=== PATIENT | female | born 1965 | race Caucasian/White ===

== ENCOUNTER 2019-04-09 01:07 | Emergency (ER) | payer OTHER, SELFPAY ==
[2019-04-09] VITALS (9 sets, daily range): BP systolic 132–161; BP diastolic 62–100; PULSE 86–109; RESP 16–25; TEMP 36.8; O2SAT 94–100
--- NOTE | ~2019-04-09 | XR_ITS ---
EXAMINATION: XR chest 2V DATE: 04/09/2019 02:10 INDICATION: Chest pain. Palpitations. TECHNIQUE: Frontal and lateral views of the chest were obtained. COMPARISON: None. FINDINGS: The chest demonstrates clear lungs without pneumonia, pleural effusion, or pneumothorax. Th e heart size is normal. Surgical clips in the right upper quadrant are likely from cholecystectomy. IMPRESSION: 1. No acute cardiopulmonary disease. Reviewed, dictated and finalized at location A. [facility] [employer] [facility]
--- NOTE | 2019-04-09 01:33 | ECG_ITS ---
Measurements Intervals [place] Rate: 109 P: 38 [place]: 145 QRS: 61 QRSD: 90 T: 57 QT: 330 QTc: 445 Interpretive Statements SINUS TACHYCARDIA LOW QRS VOLTAGE IN PRECORDIAL LEADS BASELINE WANDER- I, II, AVR, AVL, AVF, V1-V3 ABNORMAL ECG Electronically Signed On 04-09-2019 6:59:33 LINE INSPECTOR by Will Estrada D.O.
--- NOTE | 2019-04-09 01:37 | ED.ARRPALP ---
HPI - Arrhythmia/Palpitations General Chief Complaint: Arrhythmia/Palpitations Stated Complaint: pounding heart/indegestion Time Seen by Provider: 04/09/19 01:09 Source: patient, family (pt's ) and RN notes reviewed Mode of arrival: ambulatory Limitations: no limitations History of Present Illness HPI narrative: Pt is a 54 y/o female with a Hx of anxiety, who presents to the ED with c/o heart palpitations starting roughly 1.5 hours ago. Her notes that she recently stopped taking her Zoloft. Pt states that she went to sleep around 23:00 yesterday, and notes that she woke up approximately 1.5 hours ago with her heart pounding. Pt notes that her heart felt as though it was beating through her chest. She states that she felt nauseas and lightheaded after getting out of bed shortly after she awoke. Pt notes that after noticing her pulse was 128, she decided to be evaluated in the ED. She currently denies any CP, SOB, or diaphoresis. Pt states that she hasn't had any recent life stressors, and notes that she hasn't consumed any caffeine since yesterday morning. She states that she has a Hx of similar symptoms several years ago. complaint: rapid heart beat Onset (ago): hour(s) (1.5) Context: awoke with symptoms Associated symptoms: nausea and other (lightheadedness) Related Data Home Medications Medication Instructions Recorded Confirmed [place] 04/09/19 Allergies Allergy/AdvReac Type Severity Reaction Status Date / Time No Known Allergies Allergy Verified 04/09/19 01:20 Review of Systems Review of Systems: All systems reviewed & are unremarkable except as noted in HPI and below Cardiovascular: Cardiovascular: Denies chest pain, Denies diaphoresis and Reports palpitations Respiratory: Respiratory: Denies dyspnea Gastrointestinal: Gastrointestinal: Reports nausea Neurologic: Reports other (lightheadedness) [facility] Past Medical History Medical History (Updated 04/09/19 @ 05:55 by Lawson Hand MD) Anxiety HTN (hypertension) Surgical History Surgical History History of hysterectomy Hx of appendectomy Hx of cholecystectomy Hx of oophorectomy Family History Family History Sibling Acute myocardial infarction, Onset Age: 52 Social History Social History Smoking status: Never smoker Gender identity (if verbalized by the patient): Female Exam Narrative: Exam Narrative: GENERAL: Well-appearing, well-nourished, and in no acute distress. HEAD: Normocephalic, atraumatic. ENT: Mucous membranes moist. CHEST: Clear to auscultation. No respiratory distress. HEART: Regular rate and rhythm. Normal peripheral pulses. ABDOMEN: Soft, nontender, nondistended. EXTREMITIES: Normal range of motion. No edema. SKIN: Warm, dry, no rash. NEURO: No focal deficits. Alert and oriented x3. PSYCH: Mildly anxious. Course Course Emergency Course: Informed of results. Trop negative x 2. Recommend f/u with PCP. Vital Signs Vital signs: Vital Signs Temperature 98.2 F 04/09/19 01:14 Pulse Rate 109 H 04/09/19 01:14 Respiratory Rate 16 04/09/19 01:14 Blood Pressure 161/100 H 04/09/19 01:14 Pulse Oximetry 100 04/09/19 01:14 Temperature 98.2 F 04/09/19 01:14 Pulse Rate 98 04/09/19 05:32 Respiratory Rate 25 H 04/09/19 05:32 Blood Pressure 157/95 H 04/09/19 04:31 Pulse Oximetry 98 04/09/19 05:32 MDM - Arrhythmia/Palpitations Lab Data Result diagrams: 04/09/19 01:54 04/09/19 03:24 Labs: Lab Results 04/09/19 04/09/19 04/09/19 Range/Units 01:54 01:54 03:24 WBC 8.4 (4.5-10.0) K/mm3 RBC 4.54 (4.2-5.4) M/mm3 Hgb 13.7 (12.0-15.0) g/dL Hct 40.4 (37.0-47.0) % MCV 89.0 (80-100) fl MCH 30.2 (26-34) pg MCHC 33.9 (32-36) g/dl RDW 12.1 (11.5-14.5) % Plt Count 3
[2019-04-09] MEDS: ASPIRIN 81 MG CHEWABLE TABLET 324 MG PO (01:53)
[2019-04-09 02:04] LABS: Basophils Percent Auto 0.4 % (0.2-1.2); Eosinophils Absolute Auto 0.2 K/mm3 (0-0.3); Eosinophils Percent Auto 1.8 % (0-4.4); Hematocrit 40.4 % (37.0-47.0); Hemoglobin 13.7 g/dL (12.0-15.0); Immature Granulocyte Absolute 0.02 K/mm3 (0.00-0.031); Immature Granulocyte Percent A 0.2 % (0-0.5); Lymphocytes Absolute Auto 3.56 K/mm3 (0.9-3.2); Lymphocytes Percent Auto 42.4 % (18.3-44.2); Mean Corpuscular HGB Conc 33.9 g/dl (32-36); Mean Corpuscular Hemoglobin 30.2 pg (26-34); Mean Platelet Volume 9.7 fl (7.4-10.4); Monocytes Absolute Auto 0.5 K/mm3 (0.1-0.6); Monocytes Percent Auto 5.7 % (2.6-8.5); Neutrophils Absolute Auto 4.2 K/mm3 (1.3-6.7); Neutrophils Percent Auto 49.5 % (45.5-73.1); Platelet Count Result 312 k/mm3 (150-375); Red Blood Count 4.54 M/mm3 (4.2-5.4); Red Cell Distribution Width 12.1 % (11.5-14.5); White Blood Count 8.4 K/mm3 (4.5-10.0)
[2019-04-09 02:23] LABS: INR 0.8; Prothrombin Time 10.5 Seconds (11.1-14.7)
[2019-04-09 02:24] LABS: Partial Thromboplastin Time 27.5 SECONDS (22.3-36.8)
[2019-04-09 03:42] LABS: Blood Urea Nitrogen 16 mg/dL (7-17); Calcium 9.1 mg/dL (8.4-10.2); Carbon Dioxide 25 mmol/L (22-30); Chloride 102 mmol/L (98-107); Estimated CRCL calculation 117 ml/min; Estimated Glomerular Filt Rate > 60; Glucose 136 mg/dL (65-105); Sodium 138 mmol/L (137-145)
[2019-04-09 05:47] LABS: Troponin I < 0.012 ng/mL (0.000-0.034)
== END 2019-04-09 06:34 | disposition home or self-care (01) ==
PROVIDERS: Emergency Provider Emergency Medicine
DX: R00.2 Palpitations (principal); F41.9 Anxiety disorder, unspecified; I10 Essential (primary) hypertension; R00.0 Tachycardia, unspecified; R94.31 Abnormal electrocardiogram [ECG] [EKG]
CPT/HCPCS: 36415; 71046; 80048; 84484; 85025; 85610; 85730; 93005; 99284; A9270